=== PATIENT | male | born 1945 | race Caucasian/White ===

== ENCOUNTER 2020-01-21 12:12 | Emergency (ER) | payer MEDICARE ==
[2020-01-21] MEDS ORDERED: ASPIRIN TABLET 325 MG TAB PO ONE (12:17)
[2020-01-21] MEDS ORDERED: SODIUM CHLORIDE 0.9% (FLUSH) 10 ML SYG IV PRN (12:17)
--- NOTE | 2020-01-21 12:34 | CT ---
EXAM DESCRIPTION: CT head without contrast. CLINICAL HISTORY: left sided weakness and facial drooping . COMPARISON: None Available. TECHNIQUE: Contiguous axial sections are obtained as per protocol. Sagittal and coronal reformations are submitted Automatic exposure control (AEC), mA and/or kV adjustment by patient size, and/or iterative reconstructive technique was used, per departmental dose optimization program, during the performance of the CT examination. FINDINGS: Mild cortical atrophy is noted. Areas of lacunar infarcts are seen in the caudate nucleus and basal ganglia bilaterally. Dense calcifications are seen in the carotid siphon. Normal cheng-white matter differentiation is noted. No evidence of intra or extra-axial hemorrhage, hematoma, mass, mass effect or midline shift is noted. The posterior fossa structures appear normal. The bony calvarium appears intact. The soft tissues of the scalp appear unremarkable. Normal appearance of the orbits are noted. The paranasal sinuses and mastoids appear normal. IMPRESSION: No acute findings. Lacunar infarcts related encephalomalacia in both basal ganglia. If clinically ischemic CVA is suspected, MRI brain with diffusion-weighted images should be considered. Electronically signed by: Briseida Bradford MD 01/21/2020 12:33 PM CDT
--- NOTE | 2020-01-21 12:40 | RAD ---
: 1945. Technique: Portable AP chest x-ray. Comparison: None. Clinical history: left sided weakness. Heart size: Normal. Lungs: No acute consolidation. Pleura: No pleural effusion. No pneumothorax. Mediastinum and fabienne: Unremarkable. Skeletal: Unremarkable. Support tubings: None. Impression: 1. No active disease in the chest. Electronically signed by: Star Navarrete MD 01/21/2020 12:38 PM CDT
[2020-01-21] MEDS ORDERED: ALTEPLASE 50 MG IVS ONE (12:53)
--- NOTE | 2020-01-21 13:29 | ED.PDOC ---
History of Present Illness - General Chief Complaint: Neuro Symptoms/Deficits Stated Complaint: facial drooping,left sided weakness Time Seen by Provider: 01/21/20 12:17 Source: patient, RN notes reviewed, Vital Signs reviewed, EMS notes reviewed Exam Limitations: no limitations - History of Present Illness Initial Comments: Patient is a [age]-year-old white male who presents with complaints of left facial droop, left arm and leg weakness and left arm numbness. Acute onset noted at 1100 hrs. this morning. Patient denies any headaches. Timing/Duration: 1-3 hours Severity: severe Improving Factors: nothing Worsening Factors: nothing Associated Symptoms: weakness Allergies/Adverse Reactions: Allergies NO KNOWN ALLERGY Allergy (Verified 01/21/20 12:17) Home Medications: Ambulatory Orders NK 01/21/20 Review of Systems - Review of Systems Constitutional: States: no symptoms reported, see HPI. Denies: chills, fever, malaise, weakness EENTM: States: see HPI, blurred vision - Left eye. Denies: eye pain, double vision Respiratory: States: no symptoms reported. Denies: cough, short of breath, stridor, wheezing Cardiology: States: no symptoms reported. Denies: chest pain, palpitations, syncope Gastrointestinal/Abdominal: States: no symptoms reported. Denies: abdominal pain, diarrhea, nausea, vomiting Genitourinary: States: no symptoms reported Musculoskeletal: States: see HPI. Denies: back pain, joint pain, neck pain Skin: States: no symptoms reported. Denies: change in color, rash Neurological: States: see HPI, numbness - Left, weakness - Left face, left arm and left leg.. Denies: headache Endocrine: States: no symptoms reported Hematologic/Lymphatic: States: no symptoms reported All other Systems: No Change from Baseline Past Medical History (General) - Patient Medical History Hx Stroke: No Hx Congestive Heart Failure: No Hx Diabetes: No Surgical History: no surgical history - Vaccination History Hx Influenza Vaccination: No Hx Pneumococcal Vaccination: No - Social History Hx Tobacco Use: Yes Family Medical History - Family History Father Family History: Unknown Living Status: Physical Exam - Physical Exam General Appearance: Alert, Anxious, Obvious distress, Well Developed, Well Hydrated, Well Nourished Eye Exam: left other - Left gaze palsy, bilateral normal Ears, Nose, Throat: hearing grossly normal, normal ENT inspection, other Neck: non-tender, full range of motion, supple Respiratory: chest non-tender, lungs clear, no respiratory distress, no acce ssory muscle use, rhonchi - Diffusely throughout Cardiovascular/Chest: normal peripheral pulses, regular rate, rhythm, no edema, no gallop, no JVD, no murmur Peripheral Pulses: radial,right: 2+, radial,left: 2+ Gastrointestinal/Abdominal: normal bowel sounds, non tender, soft, no organomegaly, no pulsatile mass Back Exam: normal inspection, no CVA tenderness, no vertebral tenderness Extremity: no pedal edema, normal capillary refill, other - Left arm and left leg with no strength against gravity. Neurologic: alert, normal mood/affect, oriented x 3, facial droop - On the left, motor weakness - Left face, arm and leg., sensory deficit - Left arm Skin Exam: normal color, warm/dry Lymphatic: no adenopathy Progress - Progress Progress: Differential diagnosis: Hemorrhagic CVA, ischemic CVA, TIA, medication reaction among others. 01/21/20 13:39 Patient with acute strokelike symptoms with onset approximately 1100 hrs. this a.m. Patient was in the timeframe for the use of alteplase. Informed consent obtained from the patient and the consent form was signed by the son as the patient is left-hand dominant and his stroke is on the left. CT was negative for hemorrhage. Bolus of alteplase was given as indicated and drip was started. Patient was accepted at [facility] by Dr. Barker in the ED. Additionally, patient was discussed with the neuro stroke team at [facility] who agreed for transfer the patient. I discussed this plan of care with the patient and his son and they voiced understanding and agreement. Desmond Tyson M.D. #[id number] - Results/Orders Results/Orders: EXAM DESCRIPTION: CT head without contrast. CLINICAL HISTORY: left sided weakness and facial drooping . COMPARISON: None Available. TECHNIQUE: Contiguous axial sections are obtained as per protocol. Sagittal and coronal reformations are submitted Automatic exposure control (AEC), mA and/or kV adjustment by patient size, and/or iterative reconstructive technique was used, per departmental dose optimization program, during the performance of the CT examination. FINDINGS: Mild cortical atrophy is noted. Areas of lacunar infarcts are seen in the caudate nucleus and basal ganglia bilaterally. Dense calcifications are seen in the carotid siphon. Normal cheng-white matter differentiation is noted. No evidence of intra or extra-axial hemorrhage, hematoma, mass, mass effect or midline shift is noted. The posterior fossa structures appear normal. The bony calvarium appears intact. The soft tissues of the scalp appear unremarkable. Normal appearance of the orbits are noted. The paranasal sinuses and mastoids appear normal. IMPRESSION: No acute findings. Lacunar infarcts related encephalomalacia in both basal ganglia. If clinically ischemic CVA is suspected, MRI brain with diffusion-weighted images should be considered. Electronically signed by: Briseida Bradford MD 01/21/2020 12:33 PM CDT Technique: Portable AP chest x-ray. Comparison: None. Clinical history: left sided weakness. Heart size: Normal. Lungs: No acute consolidation. Pleura: No pleural effusion. No pneumothorax. Mediastinum and fabienne: Unremarkable. Skeletal: Unremarkable. Support tubings: None. Impression: 1. No active disease in the chest. Electronically signed by: Star Navarrete MD 01/21/2020 12:38 PM 01/21/20 12:17 Sodium Chloride 0.9% (Flush) [Saline Flush Syringe] 10 ml IV PRN PRN 01/21/20 12:30 EKG STAT Laboratory Results - last 24 hr 01/21/20 01/21/20 01/21/20 12:39 12:39 12:39 WBC 10.3 RBC 4.28 L Hgb 14.3 Hct 39.8 L MCV 93.0 MCH 33.3 H MCHC 35.8 RDW 14.2 Plt Count 307 MPV 8.1 Absolute Neuts (auto) 8.50 H Absolute Lymphs (auto) 0.80 L Absolute Monos (auto) 0.80 Absolute Eos (auto) 0.00 Absolute Basos (auto) 0.10 Neutrophils % 83.3 H Lymphocytes % 7.4 L Monocytes % 8.3 Eosinophils % 0.0 L Basophils % 1.0 PT 10.5 INR 1.06 PTT (SP) 25.0 Sodium 137 Potassium 4.2 Chloride 104 Carbon Dioxide 23 Anion Gap 14.2 BUN 21 H Creatinine 1.13 BUN/Creatinine Ratio 18.6 POC Glucose Random Glucose 112 H Serum Osmolality 277.5 Calcium 9.1 Total Bilirubin 1.1 H AST 26 ALT 14 Alkaline Phosphatase 62 Creatine Kinase 450 H* CK-MB (CK-2) 11.8 H* CK-MB (CK-2) % 2.62 Troponin I 0.02 Serum Total Protein 7.0 Albumin 4.2 Globulin 2.8 Albumin/Globulin Ratio 1.5 01/21/20 12:39 WBC RBC Hgb Hct MCV MCH MCHC RDW Plt Count MPV Absolute Neuts (auto) Absolute Lymphs (auto) Absolute Monos (auto) Absolute Eos (auto) Absolute Basos (auto) Neutrophils % Lymphocytes % Monocytes % Eosinophils % Basophils % PT INR PTT (SP) Sodium Potassium Chloride Carbon Dioxide Anion Gap BUN Creatinine BUN/Creatinine Ratio POC Glucose 113 H Random Glucose Serum Osmolality Calcium Total Bilirubin AST ALT Alkaline Phosphatase Creatine Kinase CK-MB (CK-2) CK-MB (CK-2) % Troponin I Serum Total Protein Albumin Globulin Albumin/Globulin Ratio Vital Signs 01/21/20 01/21/20 01/21/20 12:20 12:34 13:18 Temperature 97.4 F L Pulse Rate [ 76 67 Right Brachial] Respiratory 20 16 16 Rate Blood Pressure 169/97 165/102 [Right Arm] O2 Sat by Pulse 98 96 Oximetry - EKG/XRAY/CT CT Ordered: Yes CT Interpretation Call Back: Yes Departure - Departure Clinical Impression: CVA (cerebral vascular accident) Qualifiers: CVA mechanism: unspecified Qualified Code(s): I63.9 - Cerebral infarction, unspecified Hypertension Qualifiers: Hypertension type: essential hypertension Qualified Code(s): I10 - Essential (primary) hypertension Time of Disposition: 13:42 Disposition: Transfer to Hospital Condition: Fair Departure Forms: ED Discharge - Pt. Copy, Patient Portal Self Enrollment Diet: resume usual diet Activity: as per physical therapy Referrals: LEWIS ROMO MD [Primary Care Provider] - 1-2 Weeks Home Medications: Ambulatory Orders NK 01/21/20 Critical Care Note - Critical Care Note Total Time (mins): 60 Transfer to Outside Facility - Transfer Information Decision to Transfer Date: 01/21/20 Decision to Transfer Time: 13:00 Reason for Transfer: specialized care not available Accepting Facility: [facility]
[2020-01-21 13:47] VITALS: BP 166/88; TEMP 96.9; O2SAT 97
== END 2020-01-21 13:48 | disposition short-term general hospital (02) ==
LOC: ER 12:12
DX: I63.9 Cerebral infarction, unspecified (principal); R29.810 Facial weakness; I10 Essential (primary) hypertension; G81.92 Hemiplegia, unspecified affecting left dominant side; H53.8 Other visual disturbances
CPT/HCPCS: 36415; 36416; 70450; 71045; 80053; 82550; 82553; 82948; 84484; 85025; 85610; 85730; 93005; J2997

== ENCOUNTER 2020-02-05 14:06 | Emergency (ER) | payer MEDICARE ==
--- NOTE | 2020-02-05 14:11 | ED.PDOC ---
History of Present Illness - General Time Seen by Provider: 02/05/20 14:07 - History of Present Illness Initial Comments: 74 yo male with stroke one week ago with residual left sided deficits, presents s/p fall at residential. Not witnessed. States he was trying to grab someth ing and fell. unsure if loc. complaining of left hip pain. no seizure like activity reported. no loss of urine or bowel. denies dizziness. no chest pain. states his left hip hurts. Allergies/Adverse Reactions: Allergies NO KNOWN ALLERGY Allergy (Verified 02/05/20 14:37) Home Medications: Ambulatory Orders Acetaminophen [Tylenol] 500 mg PO Q6H PRN #30 tab 02/05/20 Review of Systems - Review of Systems Constitutional: Denies: fever, malaise EENTM: Denies: blurred vision, double vision, nose pain, throat swelling, mouth pain, mouth swelling Respiratory: Denies: cough, short of breath Cardiology: Denies: chest pain, palpitations, syncope Gastrointestinal/Abdominal: Denies: abdominal pain, diarrhea, nausea, vomiting Genitourinary: Denies: discharge, dysuria, frequency Musculoskeletal: Denies: back pain, joint pain, muscle pain, neck pain Skin: Denies: change in color, rash Neurological: States: pre-existing deficit - residual left sided weakness. Endocrine: Denies: unexplained weight gain, unexplained weight loss Hematologic/Lymphatic: Denies: blood clots, easy bleeding, easy bruising Past Medical History (General) - Patient Medical History Hx Stroke: No Hx Congestive Heart Failure: No Hx Diabetes: No - Vaccination History Hx Influenza Vaccination: No Hx Pneumococcal Vaccination: No - Social History Hx Tobacco Use: Yes Physical Exam - Physical Exam General Appearance: Alert, Comfortable, No apparent distress, Well Developed, Well Groomed, Well Hydrated, Well Nourished Head Injury: no evidence of injury, other - no edgar sign, raccoon eyes, normocephalic, atraumatic. no facial bone tenderness. Eye Exam: bilateral normal ENT Exam: hearing grossly normal, no evidence of ENT injury, no dental injury Peripheral Pulses: radial,right: 2+, radial,left: 2+, dorsalis pedis,right: 2+, dorsalis pedis,left: 2+, posterior tibialis,right: 2+, posterior tibialis,left: 2+ Cardiovascular/Respiratory: regular rate, rhythm, no M/R/G, normal peripheral pulses, no JVD, normal breath sounds, no respiratory distress Gastrointestinal/Abdominal: normal bowel sounds, non tender, soft, no organomegaly, no pulsatile mass Back Exam: normal inspection, no CVA tenderness, no vertebral tenderness Extremity Exam: no evidence of injury, normal range of motion, non-tender, no pedal edema Neurologic: alert, normal mood/affect, other - left sided 4/5 breanna ue/le, rightside 5/5 breanna. Skin Exam: normal color, warm/dry - Ursula Coma Score Best Eye Response ([place]): (4) open spontaneously Best Verbal Response ([place]): (5) oriented - to self Best Motor Response ([place]): (6) obeys commands Progress - Progress Progress: partial ddx: ICH, hip fracture, rib fracture, leg sprain. CT head negative for ICH. CXR no acute traumatic abnormalities. xray hip limited due to osteoporosis. CT pelvis no evidence of hip fracture. Patient given tylenol for pain. EKG shows HR 66, NSR, no significant change when compared to ekg on 01/20/2020. The data reviewed when caring for this patient included: nurse notes, prior records, etc. The history and assessments from nurses notes were reviewed and considered, and the patient's home medication list was also reviewed and considered. My assessment and the results of testing completed here in the ED were discussed with the patient. All questions were answered. he has been instructed to return if their symptoms worsen, and have been asked to follow up with their primary care physician to recheck today's presenting complaint. Strict return precautions given. Patient was discharged to the residential in stable condition. Aliyah Bardales DO #[id number] 02/05/20 17:44 Discharge Stat Laboratory Results WBC 11.8 K/mm3 (4.8-10.8) H 02/05/20 14:33 RBC 4.56 M/mm3 (4.70-6.10) L 02/05/20 14:33 Hgb 15.0 gm/dL (14.0-18.0) 02/05/20 14:33 Hct 41.7 % (42.0-52.0) L 02/05/20 14:33 MCV 91.4 fl (80.0-94.0) 02/05/20 14:33 MCH 32.9 pg (27.0-31.0) H 02/05/20 14:33 MCHC 36.0 g/dL (33.0-37.0) 02/05/20 14:33 RDW 13.9 % (11.5-14.5) 02/05/20 14:33 Plt Count 581 K/mm3 (130-400) H 02/05/20 14:33 MPV 8.4 fl (7.40-10.4) 02/05/20 14:33 Absolute Neuts (auto) 8.70 K/uL (1.8-6.8) H 02/05/20 14:33 Absolute Lymphs (auto) 1.50 K/uL (1.0-3.4) 02/05/20 14:33 Absolute Monos (auto) 1.30 K/uL (0.2-0.8) H 02/05/20 14:33 Absolute Eos (auto) 0.10 K/uL (0.0-0.4) 02/05/20 14:33 Absolute Basos (auto) 0.10 K/uL (0.0-0.1) 02/05/20 14:33 Neutrophils % 74.1 % (42.0-78.0) 02/05/20 14:33 Lymphocytes % 12.7 % (20.0-50.0) L 02/05/20 14:33 Monocytes % 11.1 % (2.0-9.0) H 02/05/20 14:33 Eosinophils % 1.1 % (1.0-5.0) 02/05/20 14:33 Basophils % 1.0 % (0.0-2.0) 02/05/20 14:33 PT 10.3 SECONDS (9.0-10.9) 02/05/20 14:33 INR 1.04 (0.9-1.15) 02/05/20 14:33 PTT (SP) 28.0 SECONDS (21.8-31.6) 02/05/20 14:33 Sodium 138 mmol/L (135-145) 02/05/20 14:33 Potassium 4.6 mmol/L (3.6-5.0) 02/05/20 14:33 Chloride 98 mmol/L (101-111) L 02/05/20 14:33 Carbon Dioxide 26 mmol/L (21-31) 02/05/20 14:33 Anion Gap 18.6 (12-18) H 02/05/20 14:33 BUN 28 mg/dL (7-18) H 02/05/20 14:33 Creatinine 0.96 mg/dL (0.6-1.3) 02/05/20 14:33 BUN/Creatinine Ratio 29.2 (10-20) H 02/05/20 14:33 Random Glucose 99 mg/dL (70-105) 02/05/20 14:33 Serum Osmolality 281.2 mOsm/L (275-295) 02/05/20 14:33 Calcium 9.7 mg/dL (8.4-10.2) 02/05/20 14:33 Total Bilirubin 1.1 mg/dL (0.2-1.0) H 02/05/20 14:33 AST 32 IU/L (10-42) 02/05/20 14:33 ALT 25 IU/L (10-60) 02/05/20 14:33 Alkaline Phosphatase 72 IU/L (42-121) 02/05/20 14:33 Troponin I < 0.02 ng/mL (0.01-0.05) 02/05/20 14:33 B-Natriuretic Peptide 125.0 pg/ml (0-100) H 02/05/20 14:33 Serum Total Protein 8.7 gm/dL (6.4-8.2) H 02/05/20 14:33 Albumin 4.6 g/dl (3.2-5.5) 02/05/20 14:33 Globulin 4.1 gm/dL (2.3-3.5) H 02/05/20 14:33 Albumin/Globulin Ratio 1.1 (1.1-1.9) 02/05/20 14:33 Departure - Departure Clinical Impression: Fall Qualifiers: Encounter type: initial encounter Qualified Code(s): W19.XXXA - Unspecified fall, initial encounter ICD-10 Supporting Text: hip sprain Time of Disposition: 16:23 Disposition: Discharge to SNF Departure Forms: ED Discharge - Pt. Copy, Patient Portal Self Enrollment Instructions: Preventing Falls in the Older Adult, Hip Pain in Older People, Active Range of Motion Exercises, Back and Hips Activity: walking as tolerated Referrals: LEWIS ROMO MD [Primary Care Provider] - 1-2 Days Prescriptions: Acetaminophen [Tylenol] 500 mg PO Q6H PRN #30 tab PRN Reason: Pain Home Medications: Ambulatory Orders Acetaminophen [Tylenol] 500 mg PO Q6H PRN #30 tab 02/05/20
[2020-02-05] MEDS ORDERED: HYDROmorphone HCL INJ 2 MG/ML VIAL IV ONE (14:32)
--- NOTE | 2020-02-05 14:46 | CT ---
PROVIDED CLINICAL HISTORY/REASON FOR EXAM: fall TECHNIQUE: Volumetric CT data of the brain was obtained without intravenous contrast. This exam was performed according to our departmental dose-optimization program, which includes automated exposure control, adjustment of the mA and/or kV according to patient size and/or use of iterative reconstruction technique. COMPARISON: January 21, 2020 FINDINGS: Age-related volume loss and chronic small vessel ischemic change. Similar remote lacunar infarcts in the bilateral basal ganglia. Septum pellucidum and third ventricle are midline. No acute infarction is evident by CT. No acute hemorrhage is present. No mass or mass effect is present. The calvaria and soft tissues are unremarkable. The visualized paranasal sinuses are unremarkable. IMPRESSION: No acute intracranial abnormality. Electronically signed by: Van Jakcson MD 02/05/2020 2:44 PM CDT
--- NOTE | 2020-02-05 15:07 | RAD ---
EXAM DESCRIPTION: Chest,1 View CLINICAL HISTORY: 74 years Male, fall COMPARISON: January 21, 2020 FINDINGS: One view/radiograph Heart size and pulmonary vessels are within normal limits. There is no pneumothorax or pleural effusion. The lungs are clear bilaterally. The soft tissues are unremarkable. No acute osseous findings. Loop recorder. IMPRESSION: No acute cardiopulmonary abnormality. Electronically signed by: Van Jackson MD 02/05/2020 3:05 PM CDT
--- NOTE | 2020-02-05 15:09 | RAD ---
EXAM DESCRIPTION: Hip,Left 2 Views (accession [id number]), Pelvis (accession [id number]) CLINICAL HISTORY: 74 years Male, fall, hip pain COMPARISON: None. Findings: 3 view(s)/radiograph(s) Evaluation is limited by osteopenia and positioning. A left femoral neck fracture would be difficult to exclude. There is no other fracture identified. No dislocation. [id number] bilateral hip osteoarthritis. IMPRESSION: Limited evaluation due to osteopenia and positioning. Recommend CT for further evaluation. Electronically signed by: Van Jackson MD 02/05/2020 3:07 PM CDT
--- NOTE | 2020-02-05 15:10 | RAD ---
EXAM DESCRIPTION: Hip,Left 2 Views (accession [id number]), Pelvis (accession [id number]) CLINICAL HISTORY: 74 years Male, fall, hip pain COMPARISON: None. Findings: 3 view(s)/radiograph(s) Evaluation is limited by osteopenia and positioning. A left femoral neck fracture would be difficult to exclude. There is no other fracture identified. No dislocation. [id number] bilateral hip osteoarthritis. IMPRESSION: Limited evaluation due to osteopenia and positioning. Recommend CT for further evaluation. Electronically signed by: Van Jackson MD 02/05/2020 3:07 PM CDT
--- NOTE | 2020-02-05 16:09 | CT ---
EXAM DESCRIPTION: Pelvis CLINICAL HISTORY: 74 years Male, left hip pain TECHNIQUE: This exam was performed according to our departmental dose-optimization program, which includes automated exposure control, adjustment of the mA and/or kV according to patient size and/or use of iterative reconstruction technique. COMPARISON: Same day radiographs FINDINGS: No pelvic fracture identified. Mild to moderate bilateral hip osteoarthritis. Osteopenia. Atherosclerotic disease. Contrast material in the colon. Intrapelvic structures are grossly unremarkable. No suspicious mass, fluid collection or adenopathy. IMPRESSION: No pelvic fracture identified. Electronically signed by: Van Jackson MD 02/05/2020 4:07 PM CDT
[2020-02-05] MEDS ORDERED: ACETAMINOPHEN 325 MG TAB PO ONE (16:22)
[2020-02-05 19:11] VITALS: BP 163/77; TEMP 97.8; O2SAT 95
== END 2020-02-05 18:38 ==
LOC: ER 14:06
DX: S73.102A Unspecified sprain of left hip, initial encounter (principal); I69.354 Hemiplegia and hemiparesis following cerebral infarction affecting left non-dominant side; W19.XXXA Unspecified fall, initial encounter; Y92.129 Unspecified place in nursing home as the place of occurrence of the external cause; Z87.891 Personal history of nicotine dependence

== ENCOUNTER 2020-03-07 16:03 | Emergency (ER) | payer MEDICARE ==
[2020-03-07] MEDS ORDERED: SODIUM CHLORIDE 0.9% 1000ML 1,000 ML IVS ONE (17:51)
--- NOTE | 2020-03-07 18:16 | ED.PDOC ---
History of Present Illness - General Chief Complaint: General Stated Complaint: generalized weakness Time Seen by Provider: 03/07/20 16:05 Source: patient Exam Limitations: no limitations - History of Present Illness Initial Comments: Patient is a 74-year-old male presented emergency room from the long term after becoming dizzy after smoking a cigarette this evening. No syncope. No confusion. No new focal neurological changes. 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 No chest pain or shortness of breath. He is currently feeling normal. He does feel little bit tired. No palpitations. No rash. No pain at the time. Timing/Duration: other - Episode lasted less than a minute Severity: mild Improving Factors: nothing Worsening Factors: nothing Associated Symptoms: malaise Allergies/Adverse Reactions: Allergies NO KNOWN ALLERGY Allergy (Verified 03/07/20 16:19) Home Medications: Ambulatory Orders Aspirin [Aspirin 81 Low Dose] 81 mg PO 03/07/20 Atorvastatin Calcium 40 mg PO 03/07/20 Carvedilol 3.125 mg PO 03/07/20 Enalapril Maleate 5 mg PO 03/07/20 Pantoprazole Tablet [Protonix] 40 mg PO ACBK 03/07/20 Quetiapine Fumarate 50 mg PO 03/07/20 Review of Systems - Review of Systems Constitutional: States: malaise, weakness - Generalized EENTM: States: no symptoms reported Respiratory: States: no symptoms reported Cardiology: States: no symptoms reported Gastrointestinal/Abdominal: States: no symptoms reported Genitourinary: States: no symptoms reported Musculoskeletal: States: no symptoms reported Skin: States: no symptoms reported Neurological: States: see HPI Endocrine: States: no symptoms reported All other Systems: No Change from Baseline Past Medical History (General) - Patient Medical History Hx Seizures: No Hx Stroke: Yes Hx Asthma: No Hx of COPD: No Hx Cardiac Disorders: No Hx Congestive Heart Failure: No Hx Pacemaker: No Hx Hypertension: Yes Hx Diabetes: No Hx Gastroesophageal Reflux: Yes Hx Cancer: No Hx of HIV: No Hx Hepatitis C: No - Vaccination History Hx Influenza Vaccination: No Hx Pneumococcal Vaccination: No - Social History Hx Tobacco Use: Yes - Activities of Daily Living [facility] applicable[facility]:: [facility] - Female History Patient is a Female of Child Bearing Age (10 -59 yrs old): No Family Medical History - Family History Father Family History: Unknown Living Status: Physical Exam - Physical Exam General Appearance: Alert, Comfortable, No apparent distress Eye Exam: bilateral normal Ears, Nose, Throat: hearing grossly normal, normal pharynx Neck: non-tender, supple Respiratory: chest non-tender, lungs clear, normal breath sounds, no respiratory distress, no accessory muscle use Cardiovascular/Chest: normal peripheral pulses, regular rate, rhythm, no edema Peripheral Pulses: radial,right: 2+, radial,left: 2+ Gastrointestinal/Abdominal: non tender - G-tube is in place., soft Rectal Exam: deferred Back Exam: no CVA tenderness, no vertebral tenderness Extremity: normal range of motion, non-tender, normal inspection, no pedal edema, normal capillary refill 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 Normal QT interval. Normal axis. Slow R wave progression. Inverted T waves in leads III and aVF which is not new. No obvious new changes on this EKG when compared to previous. No evidence of ST elevation myocardial infarction. Progress - Progress Progress: 03/07/20 20:04 The patient is a 74-year-old male presenting to the emergency room from the long term after having episodes of dizziness after he went outside to smoke. He is about a month out from his previous stroke. Source of the dizziness is not definitive at this point and the work-up was reassuring. Most likely dizziness was related to poor tolerance from the previous stroke. He did receive a liter of IV fluids. Vital signs have remained stable as has telemetry. 2 sets of cardiac enzymes are negative. The patient will be allowed to go back to the long term. I would encourage a reduction in smoking as well as heat exposure. ER warnings are given. coty [email or web address] [id number] - Results/Orders Results/Orders: EKG shows normal sinus rhythm at 62 bpm. Old inferior inverted T waves. Old borderline R wave progression in anterior leads. Normal QT interval. Normal axis. No definitive ST segment or T wave changes otherwise indicative of acute ischemia. Laboratory Tests Chest x-ray shows no acute pathology. 03/07/20 03/07/20 03/07/20 15:55 15:55 17:35 WBC 9.3 RBC 3.59 L Hgb 11.6 L Hct 32.8 L MCV 91.5 MCH 32.5 H MCHC 35.5 RDW 14.2 Plt Count 390 MPV 8.1 Absolute Neuts (auto) 6.10 Absolute Lymphs (auto) 1.90 Absolute Monos (auto) 0.70 Absolute Eos (auto) 0.40 Absolute Basos (auto) 0.10 Neutrophils % 66.2 Lymphocytes % 20.6 Monocytes % 7.9 Eosinophils % 4.3 Basophils % 1.0 Sodium 143 Potassium 3.6 Chloride 108 Carbon Dioxide 27 Anion Gap 11.6 L BUN 13 Creatinine 1.03 BUN/Creatinine Ratio 12.6 Random Glucose 148 H Serum Osmolality 287.8 Calcium 8.9 Total Bilirubin 0.7 AST 20 ALT 20 Alkaline Phosphatase 71 Creatine Kinase 34 L CK-MB (CK-2) 0.8 CK-MB (CK-2) % Not Reportable Troponin I < 0.02 B-Natriuretic Peptide 285.0 H* Serum Total Protein 6.7 Albumin 3.7 Globulin 3.0 Albumin/Globulin Ratio 1.2 Urine Color Yellow Urine Appearance Clear Urine pH 6.0 Ur Specific [place] 1.020 Urine Protein Negative Urine Glucose (UA) Negative Urine Ketones Trace Urine Blood Negative Urine Nitrite Negative Urine Bilirubin Negative Urine Urobilinogen 1.0 Ur Leukocyte Esterase Negative Urine RBC 0 Urine WBC 0-1 Ur Epithelial Cells 0 Urine Bacteria 0 03/07/20 19:15 WBC RBC Hgb Hct MCV MCH MCHC RDW Plt Count MPV Absolute Neuts (auto) Absolute Lymphs (auto) Absolute Monos (auto) Absolute Eos (auto) Absolute Basos (auto) Neutrophils % Lymphocytes % Monocytes % Eosinophils % Basophils % Sodium Potassium Chloride Carbon Dioxide Anion Gap BUN Creatinine BUN/Creatinine Ratio Random Glucose Serum Osmolality Calcium Total Bilirubin AST ALT Alkaline Phosphatase Creatine Kinase 29 L CK-MB (CK-2) 0.7 CK-MB (CK-2) % Not Reportable Troponin I < 0.02 B-Natriuretic Peptide Serum Total Protein Albumin Globulin Albumin/Globulin Ratio Urine Color Urine Appearance Urine pH Ur Specific [place] Urine Protein Urine Glucose (UA) Urine Ketones Urine Blood Urine Nitrite Urine Bilirubin Urine Urobilinogen Ur Leukocyte Esterase Urine RBC Urine WBC Ur Epithelial Cells Urine Bacteria - EKG/XRAY/CT CT Ordered: No Departure - Departure Clinical Impression: Dizziness of unknown etiology Disposition: Discharge to SNF Condition: Fair Departure Forms: ED Discharge - Pt. Copy, Patient Portal Self Enrollment Diet: regular diet Activity: increase activity as tolerated Referrals: LEWIS ROMO MD [Primary Care Provider] - 1-2 Weeks Home Medications: Ambulatory Orders Aspirin [Aspirin 81 Low Dose] 81 mg PO 03/07/20 Atorvastatin Calcium 40 mg PO 03/07/20 Carvedilol 3.125 mg PO 03/07/20 Enalapril Maleate 5 mg PO 03/07/20 Pantoprazole Tablet [Protonix] 40 mg PO ACBK 03/07/20 Quetiapine Fumarate 50 mg PO 03/07/20 Additional Instructions: The patient is a 74-year-old male presenting to the emergency room from the long term after having episodes of dizziness after he went outside to smoke. He is about a month out from his previous stroke. Source of the dizziness is not definitive at this point and the work-up was reassuring. Most likely dizziness was related to poor tolerance from the previous stroke. He did receive a liter of IV fluids. Vital signs have remained stable as has telemetry. 2 sets of cardiac enzymes are negative. The patient will be allowed to go back to the long term. I would encourage a reduction in smoking as well as heat exposure. ER warnings are given.
--- NOTE | 2020-03-07 18:33 | RAD ---
EXAM: Chest,1 View CLINICAL INDICATION: Dizziness COMPARISON: 02/05/2020 FINDINGS: A single view of the chest was obtained. The heart size is normal. The pulmonary vascularity is unremarkable. The lungs are clear. There is no consolidation, infiltrate, pleural effusion, or pneumothorax. IMPRESSION: No evidence of active pulmonary disease. Electronically signed by: Demarcus Gudino MD 03/07/2020 6:31 PM CDT
[2020-03-07 19:16] VITALS: O2SAT 93
[2020-03-07 20:30] VITALS: BP 142/86; TEMP 97.9
== END 2020-03-07 20:25 ==
LOC: ER 16:03
DX: R42 Dizziness and giddiness (principal); I25.2 Old myocardial infarction; I10 Essential (primary) hypertension; K21.9 Gastro-esophageal reflux disease without esophagitis; F17.210 Nicotine dependence, cigarettes, uncomplicated; I69.80 Unspecified sequelae of other cerebrovascular disease; Z79.82 Long term (current) use of aspirin; Z79.899 Other long term (current) drug therapy
CPT/HCPCS: 36415; 71045; 80053; 81001; 82550; 82553; 83880; 84484; 85025; 87635; 93005; J7030